=== PATIENT | male | born 1960 | race Caucasian/White ===

== ENCOUNTER → 2020-11-14 | Day surgery (SDC) | payer OTHER ==
[~2020-11-14] VITALS: Ht 167.6 cm; Wt 116.1 kg
[~2020-11-14] MED LIST: AMLODIPINE BESY10 MG PO; APRESOLINE100 MG PO; ASPIRIN EC81 M1 PO; ATORVASTATIN CA40 MG PO; ELIQUIS5 MG PO; FEROSUL325 MG PO; LASIX40 MG PO; METOPROLOL SUCC25 MG PO; PIOGLITAZONE HC15 MG PO; POTASSIUM CHLO20 ME2 PO; SPIRONOLACTONE25 M1 PO; TRAZODONE 100M100 MG PO
[2020-11-14 08:53] LABS: HCT 34.1 % (42.0-52.0); HGB 11.3 g/dl (13.2-18.0); MCH 29.2 pg (25.0-31.0); MCHC 33.1 g/dL (32.0-36.0); MCV 88.1 fL (78.0-100.0); RBC 3.87 M/uL (4.70-6.00); RDW 13.4 % (11.5-14.0); WBC 8.2 K/uL (4.0-10.5)
[2020-11-14 09:17] LABS: ALBUMIN 3.3 g/dL (3.4-5.0); BILIRUBIN - TOTAL 0.4 mg/dL (0.2-1.0); BUN/CREAT RATIO (CALC) 13.2 RATIO; CREATININE 2.8 mg/dL (0.67-1.17); GLOBULIN (CALCULATION) 4.1 g/dL; POTASSIUM 3.5 mmol/L (3.5-5.1); TOTAL PROTEIN 7.4 g/dL (6.4-8.2)
== END | disposition home or self-care (01) ==
LOC: FAS 07:26
PROVIDERS: Surgery
DX: D47.2 Monoclonal gammopathy (principal); Z95.1 Presence of aortocoronary bypass graft; E11.9 Type 2 diabetes mellitus without complications; I25.10 Atherosclerotic heart disease of native coronary artery without angina pectoris
CPT/HCPCS: 36415; 80053; 93005; J1642; J2250; J2704; J7120